=== PATIENT | male | born 1970 | race African-American/Black ===

== ENCOUNTER 2019-04-27 05:25 | Emergency (ER) | payer MEDICAID ==
[~2019-04-27] VITALS: Ht 185.4 cm; Wt 104.5 kg
[~2019-04-27 05:25] MED LIST: ASPI-1265 PO; ATOR20TA66 PO; METO25TA6 PO; NITR0.4T51 SL; TICA90TA PO; WARF5TAB PO
[2019-04-27 05:37] VITALS: BP 139/82
[2019-04-27] MEDS ORDERED: aspirin 325mg tablet PO ONE (06:00)
[2019-04-27 06:36] LABS: BASOPHILS # (AUTO) 0.1 X10'3 (0-0.2); BASOPHILS % (AUTO) 0.9 % (0-1); EOSINOPHILS # (AUTO) 0.1 X10'3 (0-0.9); EOSINOPHILS % (AUTO) 1.2 % (0-6); HEMATOCRIT 44.9 % (42.0-52.0); HEMOGLOBIN 15.3 g/dl (14.0-17.9); LYMPHOCYTES # (AUTO) 3.5 X10'3 (1.1-4.8); LYMPHOCYTES % (AUTO) 47.6 % (21-51); MEAN CORPUSCULAR HGB CONC 34.2 g/dL (33.0-36.5); MEAN CORPUSCULAR VOLUME 87.8 FL (78-98); MEAN PLATELET VOLUME 7.7 FL (7.4-10.4); MONOCYTES # (AUTO) 0.5 X10'3 (0-0.9); NEUTROPHILS # (AUTO) 3.2 X10'3 (1.8-7.7); NEUTROPHILS % (AUTO) 43.3 % (42-75); PLATELET COUNT 183 X10'3 (140-440); RED BLOOD COUNT 5.11 X10'6 (4.70-6.10); RED CELL DISTRIBUTION WIDTH 13.9 % (11.5-14.5); WHITE BLOOD COUNT 7.3 X10'3 (4.5-11.0)
--- NOTE | 2019-04-27 06:45 | NUR ---
pt laying on katie report no dizzyness iv attemps done but unable to start one was able to get blood and he is able to drink water so far [facility] drank about 700 ml will encourage him to drink more
[2019-04-27 06:52] LABS: ALANINE AMINOTRANSFERASE 33 U/L (12-78); ALBUMIN 4.2 G/DL (3.4-5.0); ALBUMIN/GLOBULIN RATIO 1.2 (1.1-1.5); ALKALINE PHOSPHATASE 68 IU/L (46-116); ANION GAP 8 (8-16); ASPARTATE AMINO TRANSFERASE 23 U/L (10-37); BILIRUBIN,TOTAL 0.3 MG/DL (0.1-1.0); BLOOD UREA NITROGEN 13 MG/DL (7-18); BUN/CREATININE RATIO 16.5 (5.4-32.0); CHLORIDE 105 MMOL/L (99-107); CREATININE 0.79 MG/DL (0.60-1.10); GLUCOSE 73 MG/DL (70-104); SODIUM 142 MMOL/L (135-145); TOTAL CARBON DIOXIDE 29.4 MMOL/L (24-32); TOTAL PROTEIN 7.6 G/DL (6.4-8.2); eGFR > 90 ML/MIN
== END 2019-04-27 07:21 | disposition home or self-care (01) ==
LOC: ER 05:25
DX: R42 Dizziness and giddiness (principal); I25.10 Atherosclerotic heart disease of native coronary artery without angina pectoris; E78.00 Pure hypercholesterolemia, unspecified; I10 Essential (primary) hypertension; I25.2 Old myocardial infarction; Z86.711 Personal history of pulmonary embolism; Z98.61 Coronary angioplasty status; Z98.890 Other specified postprocedural states; Z79.82 Long term (current) use of aspirin; Z79.01 Long term (current) use of anticoagulants; Z79.899 Other long term (current) drug therapy
CPT/HCPCS: 36415; 71045; 80053; 84484; 85025; 93005; 99284

== ENCOUNTER 2019-12-22 14:11 | Emergency (ER) | payer MEDICAID ==
[~2019-12-22] VITALS: Ht 185.4 cm; Wt 108.0 kg
[~2019-12-22 14:11] MED LIST changes: -WARF5TAB PO; +WARF5TAB2 PO
[2019-12-22] MEDS ORDERED: ketorolac tromethamine 15mg/ml inj. IM ONE (15:20)
--- NOTE | 2019-12-22 15:25 | NUR ---
Lab at bedside for blood draw.
[2019-12-22] MEDS ORDERED: ibuprofen 200mg tablet PO ONE (16:00)
[2019-12-22] MEDS ORDERED: AMOX500C2 PO (16:15)
[2019-12-22 16:29] VITALS: BP 151/77
== END 2019-12-22 16:29 | disposition home or self-care (01) ==
LOC: ER 14:12
DX: R51 Headache (principal); K08.89 Other specified disorders of teeth and supporting structures; Z79.2 Long term (current) use of antibiotics; Z79.82 Long term (current) use of aspirin; Z79.01 Long term (current) use of anticoagulants; Z79.899 Other long term (current) drug therapy
CPT/HCPCS: 36415; 85610; 96372; 99283; J1885

== ENCOUNTER 2020-08-08 19:00 | Emergency (ER) | payer MEDICAID ==
[~2020-08-08] VITALS: Ht 185.4 cm; Wt 104.5 kg
[~2020-08-08 19:00] MED LIST changes: +LOP25T PO; -METO25TA6 PO
[2020-08-08 19:01] VITALS: BP 163/91
[2020-08-08] MEDS ORDERED: morphine 4 MG/ML inj SYRINge IV ONE (19:10)
[2020-08-08] MEDS ORDERED: ondansetron/PF 4mg/2ml inj IV ONE (19:10)
[2020-08-08 19:32] LABS: EOSINOPHILS # (AUTO) 0.1 X10'3 (0-0.9); HEMOGLOBIN 15.3 g/dl (14.0-17.9); RED CELL DISTRIBUTION WIDTH 14.3 % (11.5-14.5); WHITE BLOOD COUNT 5.6 X10'3 (4.5-11.0)
[2020-08-08 19:34] LABS: BASOPHILS # (AUTO) 0.1 X10'3 (0-0.2); BASOPHILS % (AUTO) 1.1 % (0-1); EOSINOPHILS % (AUTO) 1.5 % (0-6); HEMATOCRIT 45.1 % (42.0-52.0); LYMPHOCYTES # (AUTO) 2.7 X10'3 (1.1-4.8); LYMPHOCYTES % (AUTO) 47.5 % (21-51); MEAN CORPUSCULAR VOLUME 88.2 FL (78-98); MEAN PLATELET VOLUME 8.1 FL (7.4-10.4); MONOCYTES # (AUTO) 0.3 X10'3 (0-0.9); NEUTROPHILS # (AUTO) 2.4 X10'3 (1.8-7.7); NEUTROPHILS % (AUTO) 43.9 % (42-75); PLATELET COUNT 193 X10'3 (140-440)
[2020-08-08 19:40] LABS: ALANINE AMINOTRANSFERASE 36 U/L (12-78); ALBUMIN/GLOBULIN RATIO 1.2 (1.1-1.5); ALKALINE PHOSPHATASE 96 IU/L (46-116); ANION GAP 10 (8-16); ASPARTATE AMINO TRANSFERASE 25 U/L (10-37); BILIRUBIN,TOTAL 0.3 MG/DL (0.1-1.0); BLOOD UREA NITROGEN 10 MG/DL (7-18); BUN/CREATININE RATIO 11.6 (5.4-32.0); CALCIUM 8.6 MG/DL (8.5-10.1); CHLORIDE 105 MMOL/L (99-107); CREATININE 0.86 MG/DL (0.60-1.10); GLUCOSE 158 MG/DL (70-104); LIPASE 65 U/L (73-393); POTASSIUM 3.7 MMOL/L (3.5-5.1); SODIUM 141 MMOL/L (135-145); TOTAL CARBON DIOXIDE 25.9 MMOL/L (24-32); TOTAL PROTEIN 7.4 G/DL (6.4-8.2); eGFR > 90 ML/MIN
[2020-08-08] MEDS ORDERED: ketorolac tromethamine 15mg/ml inj. IV ONE (20:10)
[2020-08-08] MEDS ORDERED: orphenadrine citrate 60mg/2ml inj. IM ONE (20:45)
[2020-08-08] MEDS ORDERED: ORPH100T2 PO (20:46)
[2020-08-08 20:51] LABS: CLARITY,URINE CLEAR (Clear); COLOR,URINE YELLOW (Yellow); GLUCOSE, URINE NEGATIVE (Neg); KETONES,URINE NEGATIVE (Neg); LEUKOCYTE ESTERASE ,URINE NEGATIVE (Neg); NITRITES, URINE NEGATIVE (Neg); OCCULT BLOOD,URINE SMALL (Neg); PROTEIN,URINE NEGATIVE (Neg); UROBILINOGEN,URINE 0.2 E.U/dL (0.2-1.0)
[2020-08-08 20:57] LABS: UA COLLECTION TYPE CLN CATCH MIDSTREAM
[2020-08-08 21:04] LABS: BACTERIA,URINE FEW /HPF (Neg); MUCUS STRANDS NONE SEEN /LPF (Neg); SQUAMOUS EPITHELIAL CELL,UR FEW /LPF (FEW)
[2020-08-09] MEDS ORDERED: POLY17PO10 PO (23:32)
[2020-08-09] MEDS ORDERED: DICY10CA88 PO (23:32)
== END 2020-08-08 21:26 | disposition home or self-care (01) ==
LOC: ER 19:00
DX: M54.5 Low back pain (principal); R10.9 Unspecified abdominal pain; I25.10 Atherosclerotic heart disease of native coronary artery without angina pectoris; E78.00 Pure hypercholesterolemia, unspecified; I10 Essential (primary) hypertension; I52 Other heart disorders in diseases classified elsewhere; F12.90 Cannabis use, unspecified, uncomplicated; I25.2 Old myocardial infarction; F17.210 Nicotine dependence, cigarettes, uncomplicated; Z98.61 Coronary angioplasty status; Z72.89 Other problems related to lifestyle; Z98.890 Other specified postprocedural states; Z86.711 Personal history of pulmonary embolism; Z79.82 Long term (current) use of aspirin; Z79.01 Long term (current) use of anticoagulants; Z79.899 Other long term (current) drug therapy
CPT/HCPCS: 74176; 80053; 81001; 83690; 85025; 87088; 96374; 96375; 99284; J1885; J2270; J2405

== ENCOUNTER 2020-08-09 21:31 | Emergency (ER) | payer MEDICAID ==
[~2020-08-09] VITALS: Ht 182.9 cm; Wt 104.5 kg
[~2020-08-09 21:31] MED LIST changes: +ORPH100T2 PO
[2020-08-09 21:50] VITALS: BP 142/96
[2020-08-09 23:00] LABS: BASOPHILS % (AUTO) 0.6 % (0-1); EOSINOPHILS # (AUTO) 0.1 X10'3 (0-0.9); EOSINOPHILS % (AUTO) 1.3 % (0-6); HEMOGLOBIN 16.3 g/dl (14.0-17.9); LYMPHOCYTES # (AUTO) 2.8 X10'3 (1.1-4.8); LYMPHOCYTES % (AUTO) 41.4 % (21-51); MEAN CORPUSCULAR VOLUME 88.1 FL (78-98); MEAN PLATELET VOLUME 7.6 FL (7.4-10.4); MONOCYTES # (AUTO) 0.6 X10'3 (0-0.9); MONOCYTES % (AUTO) 8.7 % (2-12); NEUTROPHILS # (AUTO) 3.2 X10'3 (1.8-7.7); PLATELET COUNT 213 X10'3 (140-440); RED BLOOD COUNT 5.45 X10'6 (4.70-6.10); RED CELL DISTRIBUTION WIDTH 14.6 % (11.5-14.5); WHITE BLOOD COUNT 6.7 X10'3 (4.5-11.0)
[2020-08-09 23:24] LABS: ALANINE AMINOTRANSFERASE 43 U/L (12-78); ALBUMIN 4.2 G/DL (3.4-5.0); ALBUMIN/GLOBULIN RATIO 1.1 (1.1-1.5); ALKALINE PHOSPHATASE 87 IU/L (46-116); ANION GAP 10 (8-16); ASPARTATE AMINO TRANSFERASE 27 U/L (10-37); BILIRUBIN,TOTAL 0.4 MG/DL (0.1-1.0); BLOOD UREA NITROGEN 9 MG/DL (7-18); BUN/CREATININE RATIO 12.3 (5.4-32.0); CALCIUM 9.2 MG/DL (8.5-10.1); CHLORIDE 103 MMOL/L (99-107); CREATININE 0.73 MG/DL (0.60-1.10); GLUCOSE 104 MG/DL (70-104); LIPASE 389 U/L (73-393); POTASSIUM 3.7 MMOL/L (3.5-5.1); SODIUM 141 MMOL/L (135-145); TOTAL CARBON DIOXIDE 27.8 MMOL/L (24-32); eGFR > 90 ML/MIN
[2020-08-09] MEDS ORDERED: ketorolac trometh inj. 60 MG/2 ML VIAL IM ONE (23:30)
[2020-08-09] MEDS ORDERED: DICY10CA88 PO (23:32)
[2020-08-09] MEDS ORDERED: POLY17PO10 PO (23:32)
== END 2020-08-10 00:29 | disposition home or self-care (01) ==
LOC: ER 21:33
DX: R10.32 Left lower quadrant pain (principal); M54.5 Low back pain; I25.10 Atherosclerotic heart disease of native coronary artery without angina pectoris; E78.00 Pure hypercholesterolemia, unspecified; I10 Essential (primary) hypertension; I25.2 Old myocardial infarction; F12.90 Cannabis use, unspecified, uncomplicated; Z86.711 Personal history of pulmonary embolism; Z98.890 Other specified postprocedural states; Z72.89 Other problems related to lifestyle; Z79.82 Long term (current) use of aspirin; Z79.899 Other long term (current) drug therapy
CPT/HCPCS: 36415; 80053; 83690; 85025; 96372; 99283; J1885

== ENCOUNTER 2023-06-03 00:54 | Emergency (ER) | payer MEDICAID, OTHER ==
[~2023-06-03] VITALS: Ht 185.4 cm; Wt 109.1 kg
[~2023-06-03 00:54] MED LIST changes: +AMOX-117 PO; +CYCL-1 PO; +DICY10CA88 PO; +IBUP-1986 PO; -ORPH100T2 PO; +ORPH100T4 PO
[2023-06-03] MEDS: HYDROmorphone 1 mg/ml syringe IV ONE (01:56)
[2023-06-03] MEDS: acetaminophen 1,000mg/100ml IV 100 ML IV STA (01:56)
[2023-06-03 02:03] LABS: BASOPHILS % (AUTO) 0.7 % (0-1); EOSINOPHILS # (AUTO) 0.1 X10'3 (0-0.9); EOSINOPHILS % (AUTO) 1.1 % (0-6); HEMATOCRIT 43.2 % (42.0-52.0); HEMOGLOBIN 14.7 g/dl (14.0-17.9); LYMPHOCYTES # (AUTO) 1.9 X10'3 (1.1-4.8); LYMPHOCYTES % (AUTO) 32.2 % (21-51); MEAN CORPUSCULAR HEMOGLOBIN 30.1 PG (27.0-31.0); MEAN CORPUSCULAR VOLUME 88.7 FL (78-98); MEAN PLATELET VOLUME 7.3 FL (7.4-10.4); MONOCYTES # (AUTO) 0.4 X10'3 (0-0.9); MONOCYTES % (AUTO) 6.7 % (2-12); NEUTROPHILS # (AUTO) 3.6 X10'3 (1.8-7.7); NEUTROPHILS % (AUTO) 59.3 % (42-75); PLATELET COUNT 212 X10'3 (140-440); RED BLOOD COUNT 4.87 X10'6 (4.70-6.10); RED CELL DISTRIBUTION WIDTH 14.2 % (11.5-14.5)
[2023-06-03 02:11] LABS: ALBUMIN 3.6 G/DL (3.4-5.0); ANION GAP 10 (8-16); BLOOD UREA NITROGEN 11 MG/DL (7-18); BUN/CREATININE RATIO 13.8 (10.0-20.0); CALCIUM 8.9 MG/DL (8.5-10.1); CHLORIDE 107 MMOL/L (99-107); GLUCOSE 113 MG/DL (70-104); POTASSIUM 4.1 MMOL/L (3.5-5.1); SODIUM 144 MMOL/L (135-145); TOTAL CARBON DIOXIDE 26.8 MMOL/L (24-32); eCRCL 119 ML/MIN; eGFR > 90 ML/MIN
[2023-06-03 04:00] VITALS: TEMP 98.6
[2023-06-03 04:39] LABS: BILIRUBIN,URINE NEGATIVE (Neg); CLARITY,URINE CLEAR (Clear); COLOR,URINE YELLOW (Yellow); GLUCOSE, URINE NEGATIVE (Neg); KETONES,URINE NEGATIVE (Neg); LEUKOCYTE ESTERASE ,URINE NEGATIVE (Neg); NITRITES, URINE NEGATIVE (Neg); OCCULT BLOOD,URINE TRACE-INTACT (Neg); PH,URINE 7.5 (4.8-8.0); PROTEIN,URINE NEGATIVE (Neg); UROBILINOGEN,URINE 0.2 E.U/dL (0.2-1.0)
[2023-06-03 04:40] LABS: UA COLLECTION TYPE CLN CATCH MIDSTREAM
[2023-06-03 04:58] LABS: RBC,URINE 0-2 /HPF (0-2)
[2023-06-03 04:59] LABS: BACTERIA,URINE FEW /HPF (Neg); SQUAMOUS EPITHELIAL CELL,UR MANY /LPF (FEW)
[2023-06-03 05:00] LABS: MUCUS STRANDS NONE SEEN /LPF (Neg)
[2023-06-03 05:03] LABS: PROTHROMBIN TIME 20.2 SECONDS (9.0-12.0)
[2023-06-03] MEDS ORDERED: iohexol 300mg/ml 100ml inj. ONE (05:09)
[2023-06-03] MEDS ORDERED: CEPH-585 PO (05:44)
[2023-06-03 06:33] VITALS: BP 201/83; PULSE 63; RESP 17; O2SAT 100
[2023-06-04] MEDS ORDERED: HYDR-3965 PO (18:52)
== END 2023-06-03 06:37 | disposition home or self-care (01) ==
LOC: ER 00:54
DX: N39.0 Urinary tract infection, site not specified (principal); M25.552 Pain in left hip; R10.31 Right lower quadrant pain; M79.604 Pain in right leg
CPT/HCPCS: 36415; 73502; 73552; 74177; 80048; 81001; 85025; 85610; 96374; 96375; 99285; J0131; J1170; J3490; Q9967

== ENCOUNTER 2023-06-04 08:28 | Emergency (ER) | payer OTHER ==
[~2023-06-04] VITALS: Ht 185.4 cm; Wt 109.0 kg
[~2023-06-04 08:28] MED LIST changes: +CEPH-585 PO
[2023-06-04] MEDS: acetaminophen 1,000mg/100ml IV 100 ML IV ONE (10:12)
[2023-06-04 11:50] LABS: BILIRUBIN,URINE NEGATIVE (Neg); CLARITY,URINE CLEAR (Clear); COLOR,URINE YELLOW (Yellow); GLUCOSE, URINE NEGATIVE (Neg); KETONES,URINE NEGATIVE (Neg); LEUKOCYTE ESTERASE ,URINE NEGATIVE (Neg); NITRITES, URINE NEGATIVE (Neg); OCCULT BLOOD,URINE SMALL (Neg); PH,URINE 7.5 (4.8-8.0); PROTEIN,URINE NEGATIVE (Neg); UROBILINOGEN,URINE 0.2 E.U/dL (0.2-1.0)
[2023-06-04 11:54] LABS: UA COLLECTION TYPE VOIDED
[2023-06-04 11:59] LABS: BACTERIA,URINE FEW /HPF (Neg); MUCUS STRANDS NONE SEEN /LPF (Neg); SQUAMOUS EPITHELIAL CELL,UR FEW /LPF (FEW); WBC,URINE 0-4 /HPF (0-4)
[2023-06-04] MEDS: HYDROcodone/acetaminophen 5mg/325mg tablet PO ONE (12:34)
[2023-06-04] MEDS ORDERED: iohexol 350MG/ML 100ml bottle IV ONE ×2 (12:43→13:55)
[2023-06-04] MEDS ORDERED: iohexol 350 MG/ML 50ML vial IV ONE ×2 (12:44→13:55)
[2023-06-04 13:22] LABS: BASOPHILS # (AUTO) 0.1 X10'3 (0-0.2); BASOPHILS % (AUTO) 0.8 % (0-1); EOSINOPHILS # (AUTO) 0.1 X10'3 (0-0.9)
[2023-06-04 13:24] LABS: EOSINOPHILS % (AUTO) 1.2 % (0-6); HEMATOCRIT 46.6 % (42.0-52.0); LYMPHOCYTES # (AUTO) 3.7 X10'3 (1.1-4.8); LYMPHOCYTES % (AUTO) 41.8 % (21-51); MEAN CORPUSCULAR HEMOGLOBIN 30.5 PG (27.0-31.0); MEAN CORPUSCULAR HGB CONC 34.4 g/dL (33.0-36.5); MEAN CORPUSCULAR VOLUME 88.6 FL (78-98); MEAN PLATELET VOLUME 7.7 FL (7.4-10.4); MONOCYTES # (AUTO) 0.6 X10'3 (0-0.9); MONOCYTES % (AUTO) 6.5 % (2-12); NEUTROPHILS # (AUTO) 4.4 X10'3 (1.8-7.7); NEUTROPHILS % (AUTO) 49.7 % (42-75); PLATELET COUNT 239 X10'3 (140-440); RED BLOOD COUNT 5.26 X10'6 (4.70-6.10); RED CELL DISTRIBUTION WIDTH 14.4 % (11.5-14.5); WHITE BLOOD COUNT 8.8 X10'3 (4.5-11.0)
[2023-06-04 13:27] LABS: ALANINE AMINOTRANSFERASE 19 U/L (12-78); ALBUMIN 3.9 G/DL (3.4-5.0); ALKALINE PHOSPHATASE 91 IU/L (46-116); ANION GAP 9 (8-16); ASPARTATE AMINO TRANSFERASE 20 U/L (10-37); BILIRUBIN,TOTAL 0.5 MG/DL (0.1-1.0); BLOOD UREA NITROGEN 8 MG/DL (7-18); BUN/CREATININE RATIO 9.6 (10.0-20.0); C-REACTIVE PROTEIN 1.03 MG/DL (0.0-0.5); CALCIUM 8.9 MG/DL (8.5-10.1); CHLORIDE 105 MMOL/L (99-107); CREATININE 0.83 MG/DL (0.60-1.10); GLUCOSE 104 MG/DL (70-104); SODIUM 142 MMOL/L (135-145); TOTAL CARBON DIOXIDE 27.6 MMOL/L (24-32); TOTAL PROTEIN 7.9 G/DL (6.4-8.2); eCRCL 115 ML/MIN; eGFR > 90 ML/MIN
[2023-06-04] MEDS: cyclobenzaprine 10mg tablet PO ONE (13:28)
[2023-06-04] MEDS: morphine 2 MG/ML inj. syringe IV ONE (13:47)
[2023-06-04] MEDS ORDERED: acetaminophen 1,000mg/100ml IV 100 ML IV SCH (14:00)
[2023-06-04] MEDS: oxyCODONE SR 10mg (sust. release) tab PO ONE (15:30)
[2023-06-04] MEDS ORDERED: HYDR-3965 PO (18:52)
[2023-06-04 19:41] VITALS: BP 149/88; PULSE 77; RESP 16; TEMP 98.3; O2SAT 99
== END 2023-06-04 19:44 | disposition home or self-care (01) ==
LOC: ER 08:28
DX: M25.562 Pain in left knee (principal); E78.00 Pure hypercholesterolemia, unspecified; I50.9 Heart failure, unspecified; F17.200 Nicotine dependence, unspecified, uncomplicated; F12.10 Cannabis abuse, uncomplicated; Z79.899 Other long term (current) drug therapy
CPT/HCPCS: 36415; 72128; 72131; 73706; 80053; 81001; 83605; 84145; 85025; 85651; 86140; 93922; 93926; 93971; 96374; 96375; 99285; J0131; J2270; J3490; Q9967

== ENCOUNTER 2023-09-09 21:24 | Inpatient (IN) | payer SELFPAY ==
[~2023-09-09] VITALS: Ht 185.4 cm; Wt 107.0 kg
[2023-09-09 21:48] LABS: EOSINOPHILS # (AUTO) 0.1 X10'3 (0-0.9); HEMOGLOBIN 15.7 g/dl (14.0-17.9); MONOCYTES # (AUTO) 0.6 X10'3 (0-0.9); NEUTROPHILS # (AUTO) 1.8 X10'3 (1.8-7.7)
[2023-09-09 21:50] LABS: BASOPHILS # (AUTO) 0.1 X10'3 (0-0.2); BASOPHILS % (AUTO) 0.9 % (0-1); EOSINOPHILS % (AUTO) 1.7 % (0-6); HEMATOCRIT 46.2 % (42.0-52.0); LYMPHOCYTES # (AUTO) 3.7 X10'3 (1.1-4.8); LYMPHOCYTES % (AUTO) 58.7 % (21-51); MEAN CORPUSCULAR VOLUME 88.1 FL (78-98); MEAN PLATELET VOLUME 7.2 FL (7.4-10.4); MONOCYTES % (AUTO) 9.5 % (2-12); NEUTROPHILS % (AUTO) 29.2 % (42-75); PLATELET COUNT 197 X10'3 (140-440); RED BLOOD COUNT 5.25 X10'6 (4.70-6.10); RED CELL DISTRIBUTION WIDTH 14.1 % (11.5-14.5); WHITE BLOOD COUNT 6.2 X10'3 (4.5-11.0)
[2023-09-09 22:13] LABS: PRO BRAIN NATRIURETIC PEPTIDE 70 PG/ML (0-125)
[2023-09-09 22:46] LABS: PLATELET ESTIMATE NORMAL; TOTAL CELLS COUNTED 100
[2023-09-09 22:49] LABS: ALANINE AMINOTRANSFERASE 26 U/L (12-78); ALBUMIN 3.9 G/DL (3.4-5.0); ALKALINE PHOSPHATASE 88 IU/L (46-116); ANION GAP 12 (8-16); ASPARTATE AMINO TRANSFERASE 14 U/L (10-37); BILIRUBIN,TOTAL 0.4 MG/DL (0.1-1.0); BLOOD UREA NITROGEN 11 MG/DL (7-18); BUN/CREATININE RATIO 12.5 (10.0-20.0); CALCIUM 9.1 MG/DL (8.5-10.1); CHLORIDE 103 MMOL/L (99-107); CREATININE 0.88 MG/DL (0.60-1.10); GLUCOSE 107 MG/DL (70-104); POIKILOCYTOSIS FEW; POTASSIUM 3.8 MMOL/L (3.5-5.1); SODIUM 139 MMOL/L (135-145); TOTAL CARBON DIOXIDE 24.4 MMOL/L (24-32); TOTAL PROTEIN 7.8 G/DL (6.4-8.2); eCRCL 108 ML/MIN; eGFR > 90 ML/MIN
[2023-09-09 22:50] LABS: HYPERSEGMENTED NEUTROPHILS FEW; SMUDGE CELLS 1+; TOXIC VACUOLATION 1+
[2023-09-09] MEDS: acetaminophen 325mg tablet PO ONE (23:34)
[2023-09-10] VITALS (11 sets, daily range): BP systolic 139–154; BP diastolic 78–88; PULSE 53–87; RESP 16–18; TEMP 98.2–98.8; O2SAT 96–100
[2023-09-10] MEDS: metoprolol tartrate 50mg tablet PO ONE (00:54)
[2023-09-10] MEDS: aspirin 325mg tablet PO ONE (00:54)
[2023-09-10] MEDS: heparin 10,000 units/1 ML INJ IV ONE (01:02)
[2023-09-10] MEDS: heparin 25,000 UNIT/250ml bag 250 ML IV PRN (01:05)
[2023-09-10] MEDS: MESSAGE TO NURSING IV ONE ×2 (01:07→09:55)
[2023-09-10 01:15] LABS: APTT 24 SECONDS (22-32); INR 1.2 INR; PROTHROMBIN TIME 12.2 SECONDS (9.0-12.0)
[2023-09-10 02:03] LABS: BASOPHILS # (AUTO) 0.1 X10'3 (0-0.2); BASOPHILS % (AUTO) 1.2 % (0-1); EOSINOPHILS # (AUTO) 0.1 X10'3 (0-0.9); EOSINOPHILS % (AUTO) 1.4 % (0-6); HEMATOCRIT 44.8 % (42.0-52.0); HEMOGLOBIN 15.4 g/dl (14.0-17.9); LYMPHOCYTES # (AUTO) 2.5 X10'3 (1.1-4.8); LYMPHOCYTES % (AUTO) 40.1 % (21-51); MEAN CORPUSCULAR HEMOGLOBIN 30.2 PG (27.0-31.0); MEAN CORPUSCULAR HGB CONC 34.4 g/dL (33.0-36.5); MEAN CORPUSCULAR VOLUME 87.8 FL (78-98); MEAN PLATELET VOLUME 7.5 FL (7.4-10.4); MONOCYTES # (AUTO) 0.4 X10'3 (0-0.9); MONOCYTES % (AUTO) 5.9 % (2-12); NEUTROPHILS # (AUTO) 3.2 X10'3 (1.8-7.7); NEUTROPHILS % (AUTO) 51.4 % (42-75); PLATELET COUNT 183 X10'3 (140-440); RED CELL DISTRIBUTION WIDTH 14.1 % (11.5-14.5); WHITE BLOOD COUNT 6.3 X10'3 (4.5-11.0)
[2023-09-10] MEDS ORDERED: potassium Cl 20 mEq SR tablet PO PRN ×2 (02:10)
[2023-09-10] MEDS ORDERED: magnesium 4gm in 100ml NS 100 ML IV PRN (02:10)
[2023-09-10] MEDS ORDERED: HYDROcodone/acetaminophen 10/325mg tab PO PRN (02:10)
[2023-09-10] MEDS ORDERED: ondansetron/PF 4mg/2ml inj IV PRN (02:10)
[2023-09-10] MEDS ORDERED: morphine 2 MG/ML inj. syringe IV PRN ×2 (02:10)
[2023-09-10] MEDS ORDERED: magnesium Cl slow-release 64mg tablet PO PRN (02:10)
[2023-09-10] MEDS ORDERED: HYDROcodone/acetaminophen 5mg/325mg tablet PO PRN (02:10)
[2023-09-10] MEDS ORDERED: magnesium 2GM in 50ml NS 50 ML IV PRN (02:10)
[2023-09-10] MEDS ORDERED: acetaminophen 325mg tablet PO PRN ×2 (02:10)
[2023-09-10] MEDS ORDERED: potassium Cl 40MEQ/1/2NS 520ml 520 ML IV PRN (02:10)
[2023-09-10] MEDS ORDERED: nitroGLYCERIN 0.4mg SUBLingual tab SL PRN (02:15)
[2023-09-10] MEDS ORDERED: heparin 25,000 UNIT/250ml bag 250 ML IV PRN (02:15)
[2023-09-10] MEDS ORDERED: aminophylline 250mg/10ml inj. IV PRN (02:15)
[2023-09-10] MEDS ORDERED: heparin 10,000 units/1 ML INJ IV PRN (02:15)
[2023-09-10] MEDS ORDERED: metoprolol tartrate 1mg/ml inj IV PRN (02:15)
[2023-09-10] MEDS: normal saline 1000ml 1,000 ML IV SCH (04:48)
[2023-09-10] MEDS: metoprolol tartrate 25mg tablet PO SCH (06:00)
[2023-09-10] MEDS: aspirin 325mg tablet PO SCH (08:36)
[2023-09-10 09:14] LABS: APTT 30 SECONDS (22-32)
[2023-09-10] MEDS: regadenoson 0.4mg/5ml syringe IV PRN (09:15)
[2023-09-10] MEDS ORDERED: WARF1TAB83 PO (10:26)
[2023-09-10] MEDS ORDERED: NITR0.4T51 SL (10:30)
[2023-09-10] MEDS: heparin 10,000 units/1 ML INJ IV PRN (10:39)
[2023-09-10] MEDS ORDERED: METO25TA6 PO (10:50)
[2023-09-10] MEDS ORDERED: ATOR20TA PO (11:04)
[2023-09-10] MEDS ORDERED: LISI5TAB22 PO (13:03)
== END 2023-09-10 14:30 | disposition home or self-care (01) | DRG 282 ==
LOC: ER 21:24 → ED HOLD 09-10 02:11 → EDBEDREQ 09-10 03:28 → PCU 3S 09-10 04:17
PROVIDERS: ADMIT Internal Medicine; ATTEND Internal Medicine
PROC: 4A02XM4 Measurement of Cardiac Total Activity, External Approach (ICD-10-PCS; principal; 2023-09-10)
PROC: 3E033HZ Introduction of Radioactive Substance into Peripheral Vein, Percutaneous Approach (ICD-10-PCS; 2023-09-10)
DX: I21.4 Non-ST elevation (NSTEMI) myocardial infarction (principal); E78.00 Pure hypercholesterolemia, unspecified; I10 Essential (primary) hypertension; I25.10 Atherosclerotic heart disease of native coronary artery without angina pectoris; G89.29 Other chronic pain; F17.210 Nicotine dependence, cigarettes, uncomplicated; F12.90 Cannabis use, unspecified, uncomplicated; I25.2 Old myocardial infarction; Z79.899 Other long term (current) drug therapy; Z86.711 Personal history of pulmonary embolism; Z95.5 Presence of coronary angioplasty implant and graft
CPT/HCPCS: 36415; 71045; 78452; 80053; 83880; 84484; 85007; 85025; 85610; 85730; 87081; 93005; 93017; 93306; 96365; 96376; 99285; A6449; A9500; G0378; J1644; J2785; J7030

== ENCOUNTER 2023-10-12 20:45 | Emergency (ER) | payer BC ==
[~2023-10-12] VITALS: Ht 185.4 cm; Wt 109.1 kg
[~2023-10-12 20:45] MED LIST changes: -AMOX-117 PO; +ATOR20TA PO; -ATOR20TA66 PO; -CEPH-585 PO; -CYCL-1 PO; -DICY10CA88 PO; -IBUP-1986 PO; +LISI5TAB22 PO; -LOP25T PO; +METO25TA6 PO; -ORPH100T4 PO; -TICA90TA PO; +WARF1TAB83 PO; -WARF5TAB2 PO
[2023-10-12 20:53] VITALS: TEMP 98.6
[2023-10-12 21:55] LABS: BILIRUBIN,URINE NEGATIVE (Neg); CLARITY,URINE CLEAR (Clear); COLOR,URINE YELLOW (Yellow); GLUCOSE, URINE NEGATIVE (Neg); KETONES,URINE NEGATIVE (Neg); LEUKOCYTE ESTERASE ,URINE NEGATIVE (Neg); NITRITES, URINE NEGATIVE (Neg); OCCULT BLOOD,URINE SMALL (Neg); PROTEIN,URINE NEGATIVE (Neg); UROBILINOGEN,URINE 0.2 E.U/dL (0.2-1.0)
[2023-10-12 22:00] LABS: UA COLLECTION TYPE CLN CATCH MIDSTREAM
[2023-10-12 22:01] LABS: MUCUS STRANDS MANY /LPF (Neg); SQUAMOUS EPITHELIAL CELL,UR MODERATE /LPF (FEW); WBC,URINE 0-4 /HPF (0-4)
[2023-10-12 22:02] LABS: BACTERIA,URINE NONE SEEN /HPF (Neg)
[2023-10-12] MEDS: ketorolac tromethamine 15mg/ml inj. IM ONE (22:08)
[2023-10-12] MEDS ORDERED: PRED20TA PO (22:58)
[2023-10-12 23:07] VITALS: BP 144/81; PULSE 89; RESP 14; O2SAT 98
[2023-10-13] MEDS ORDERED: HYDR-3972 PO (19:57)
[2023-10-13] MEDS ORDERED: METH-798 PO (19:57)
== END 2023-10-12 23:08 | disposition home or self-care (01) ==
LOC: ER 20:46
DX: M54.17 Radiculopathy, lumbosacral region (principal); I25.10 Atherosclerotic heart disease of native coronary artery without angina pectoris; E78.00 Pure hypercholesterolemia, unspecified; I10 Essential (primary) hypertension; I25.2 Old myocardial infarction; F12.90 Cannabis use, unspecified, uncomplicated; G89.29 Other chronic pain; M54.9 Dorsalgia, unspecified; Z98.890 Other specified postprocedural states; Z79.82 Long term (current) use of aspirin; Z79.899 Other long term (current) drug therapy; Z86.711 Personal history of pulmonary embolism
CPT/HCPCS: 81001; 96372; 99283; J1885

== ENCOUNTER 2023-10-13 16:16 | Emergency (ER) | payer BC ==
[~2023-10-13] VITALS: Ht 185.4 cm; Wt 109.1 kg
[~2023-10-13 16:16] MED LIST changes: +PRED20TA PO
[2023-10-13] MEDS: LORazepam 1 MG tablet PO ONE (16:55)
[2023-10-13] MEDS ORDERED: HYDR-3972 PO (19:57)
[2023-10-13] MEDS ORDERED: METH-798 PO (19:57)
[2023-10-13 20:05] VITALS: BP 145/84; PULSE 66; RESP 17; TEMP 97.9; O2SAT 97
== END 2023-10-13 20:09 | disposition home or self-care (01) ==
LOC: ER 16:16
DX: M54.17 Radiculopathy, lumbosacral region (principal); I25.10 Atherosclerotic heart disease of native coronary artery without angina pectoris; E78.00 Pure hypercholesterolemia, unspecified; I10 Essential (primary) hypertension; I25.2 Old myocardial infarction; G89.29 Other chronic pain; M54.9 Dorsalgia, unspecified; F12.90 Cannabis use, unspecified, uncomplicated; Z86.711 Personal history of pulmonary embolism; Z98.890 Other specified postprocedural states; Z79.82 Long term (current) use of aspirin; Z79.899 Other long term (current) drug therapy; Z79.52 Long term (current) use of systemic steroids
CPT/HCPCS: 72148; 99284

== ENCOUNTER 2023-12-28 15:00 | Inpatient (IN) | payer BC ==
[~2023-12-28] VITALS: Ht 185.4 cm; Wt 120.0 kg
[~2023-12-28 15:00] MED LIST changes: +METH-798 PO; -PRED20TA PO
[2023-12-28 15:43] LABS: BASOPHILS % (AUTO) 0.5 % (0-1); EOSINOPHILS # (AUTO) 0.1 X10'3 (0-0.9); EOSINOPHILS % (AUTO) 2.4 % (0-6); HEMATOCRIT 42.8 % (42.0-52.0); LYMPHOCYTES # (AUTO) 1.9 X10'3 (1.1-4.8); LYMPHOCYTES % (AUTO) 41.3 % (21-51); MEAN CORPUSCULAR HEMOGLOBIN 28.9 PG (27.0-31.0); MEAN CORPUSCULAR HGB CONC 32.8 g/dL (33.0-36.5); MEAN CORPUSCULAR VOLUME 88.2 FL (78-98); MEAN PLATELET VOLUME 7.4 FL (7.4-10.4); MONOCYTES # (AUTO) 0.4 X10'3 (0-0.9); MONOCYTES % (AUTO) 8.5 % (2-12); NEUTROPHILS # (AUTO) 2.2 X10'3 (1.8-7.7); NEUTROPHILS % (AUTO) 47.3 % (42-75); PLATELET COUNT 184 X10'3 (140-440); RED BLOOD COUNT 4.85 X10'6 (4.70-6.10); RED CELL DISTRIBUTION WIDTH 14.4 % (11.5-14.5); WHITE BLOOD COUNT 4.6 X10'3 (4.5-11.0)
[2023-12-28 15:55] LABS: ALANINE AMINOTRANSFERASE 33 U/L (12-78); ALBUMIN 3.7 G/DL (3.4-5.0); ALBUMIN/GLOBULIN RATIO 1.2 (1.1-1.5); ALKALINE PHOSPHATASE 88 IU/L (46-116); ANION GAP 7 (8-16); ASPARTATE AMINO TRANSFERASE 29 U/L (10-37); BILIRUBIN,TOTAL 0.4 MG/DL (0.1-1.0); BLOOD UREA NITROGEN 9 MG/DL (7-18); BUN/CREATININE RATIO 11.3 (10.0-20.0); CALCIUM 8.7 MG/DL (8.5-10.1); CHLORIDE 105 MMOL/L (99-107); GLUCOSE 135 MG/DL (70-104); POTASSIUM 3.9 MMOL/L (3.5-5.1); SODIUM 140 MMOL/L (135-145); TOTAL CARBON DIOXIDE 28.4 MMOL/L (24-32); TOTAL PROTEIN 6.9 G/DL (6.4-8.2); eCRCL 118 ML/MIN; eGFR > 90 ML/MIN
[2023-12-28 16:02] LABS: PRO BRAIN NATRIURETIC PEPTIDE < 30 PG/ML (0-125)
[2023-12-28] MEDS ORDERED: OMEP40CA21 PO (17:46)
[2023-12-28] MEDS ORDERED: heparin 10,000 units/1 ML INJ IV PRN ×2 (18:10→19:00)
[2023-12-28] MEDS ORDERED: heparin 10,000 units/1 ML INJ IV ONE ×2 (18:10→20:10)
[2023-12-28] MEDS ORDERED: heparin 25,000 UNIT/250ml bag 250 ML IV PRN ×2 (18:10→20:10)
[2023-12-28 19:28] LABS: INR 1.8 INR; PROTHROMBIN TIME 17.6 SECONDS (9.0-12.0)
[2023-12-28] MEDS: mag hydrox/Alum hydrox/simeth 30ml oral suspension PO ONE (19:30)
[2023-12-28] MEDS: morphine 4 MG/ML inj SYRINge IV ONE (19:30)
[2023-12-28] MEDS: heparin 25,000 UNIT/250ml bag 250 ML IV PRN (20:01)
[2023-12-28] MEDS: MESSAGE TO NURSING IV ONE (20:02)
[2023-12-28] MEDS: heparin 10,000 units/1 ML INJ IV ONE (20:02)
[2023-12-28] MEDS ORDERED: magnesium sulf-water 4G/100mL 100 ML IV PRN (20:15)
[2023-12-28] MEDS ORDERED: mag hydrox/Alum hydrox/simeth 30ml oral suspension PO PRN (20:15)
[2023-12-28] MEDS: normal saline 1000ml 1,000 ML IV SCH (20:15)
[2023-12-28] MEDS ORDERED: ondansetron/PF 4mg/2ml inj IV PRN (20:15)
[2023-12-28] MEDS ORDERED: morphine 2 MG/ML inj. syringe IV PRN (20:15)
[2023-12-28] MEDS ORDERED: acetaminophen 325mg tablet PO PRN (20:15)
[2023-12-28] MEDS ORDERED: potassium Cl 20 mEq SR tablet PO PRN ×2 (20:15)
[2023-12-28] MEDS ORDERED: potassium Cl 40MEQ/1/2NS 520ml 520 ML IV PRN (20:15)
[2023-12-28] MEDS ORDERED: magnesium hydroxide 30ml (MOM) UD suspension PO PRN (20:15)
[2023-12-28] MEDS ORDERED: magnesium Cl slow-release 64mg tablet PO PRN (20:15)
[2023-12-28] MEDS ORDERED: magnesium sulf-water 2g/50mL 50 ML IV PRN (20:15)
[2023-12-28 20:34] LABS: BASOPHILS # (AUTO) 0.1 X10'3 (0-0.2); BASOPHILS % (AUTO) 0.9 % (0-1); EOSINOPHILS # (AUTO) 0.1 X10'3 (0-0.9); EOSINOPHILS % (AUTO) 2.3 % (0-6); HEMATOCRIT 43.1 % (42.0-52.0); HEMOGLOBIN 14.6 g/dl (14.0-17.9); LYMPHOCYTES # (AUTO) 2.7 X10'3 (1.1-4.8); MEAN CORPUSCULAR HEMOGLOBIN 29.8 PG (27.0-31.0); MEAN CORPUSCULAR HGB CONC 33.8 g/dL (33.0-36.5); MEAN CORPUSCULAR VOLUME 88.2 FL (78-98); MEAN PLATELET VOLUME 7.8 FL (7.4-10.4); MONOCYTES # (AUTO) 0.4 X10'3 (0-0.9); MONOCYTES % (AUTO) 7.6 % (2-12); NEUTROPHILS # (AUTO) 2.1 X10'3 (1.8-7.7); NEUTROPHILS % (AUTO) 39.2 % (42-75); PLATELET COUNT 195 X10'3 (140-440); RED BLOOD COUNT 4.89 X10'6 (4.70-6.10); RED CELL DISTRIBUTION WIDTH 14.4 % (11.5-14.5); WHITE BLOOD COUNT 5.4 X10'3 (4.5-11.0)
[2023-12-28] MEDS: aspirin 325mg tablet PO ONE (20:35)
[2023-12-28 20:48] LABS: APTT 70 SECONDS (22-32)
[2023-12-28] MEDS ORDERED: WARF4TAB69 (21:11)
[2023-12-28] MEDS ORDERED: AMLO5TAB16 PO (21:11)
[2023-12-28] MEDS ORDERED: GABA300T28 (21:11)
[2023-12-29] MEDS: METHOCARBAMOL 750 MG PO SCH
[2023-12-29 02:21] LABS: BASOPHILS % (AUTO) 0.5 % (0-1); EOSINOPHILS # (AUTO) 0.1 X10'3 (0-0.9); EOSINOPHILS % (AUTO) 2.4 % (0-6); HEMATOCRIT 43.7 % (42.0-52.0); HEMOGLOBIN 14.4 g/dl (14.0-17.9); LYMPHOCYTES % (AUTO) 52.2 % (21-51); MEAN CORPUSCULAR HEMOGLOBIN 29.2 PG (27.0-31.0); MEAN CORPUSCULAR HGB CONC 33.1 g/dL (33.0-36.5); MEAN CORPUSCULAR VOLUME 88.4 FL (78-98); MEAN PLATELET VOLUME 7.3 FL (7.4-10.4); MONOCYTES # (AUTO) 0.5 X10'3 (0-0.9); MONOCYTES % (AUTO) 8.7 % (2-12); NEUTROPHILS # (AUTO) 2.1 X10'3 (1.8-7.7); NEUTROPHILS % (AUTO) 36.2 % (42-75); PLATELET COUNT 182 X10'3 (140-440); RED BLOOD COUNT 4.95 X10'6 (4.70-6.10); WHITE BLOOD COUNT 5.7 X10'3 (4.5-11.0)
[2023-12-29 02:29] LABS: ALANINE AMINOTRANSFERASE 32 U/L (12-78); ALBUMIN 3.7 G/DL (3.4-5.0); ALBUMIN/GLOBULIN RATIO 1.1 (1.1-1.5); ALKALINE PHOSPHATASE 89 IU/L (46-116); ANION GAP 6 (8-16); ASPARTATE AMINO TRANSFERASE 30 U/L (10-37); BILIRUBIN,TOTAL 0.4 MG/DL (0.1-1.0); BLOOD UREA NITROGEN 9 MG/DL (7-18); BUN/CREATININE RATIO 11.4 (10.0-20.0); CALCIUM 8.7 MG/DL (8.5-10.1); CHLORIDE 105 MMOL/L (99-107); CHOL/HDL RATIO 4.7 (0.00-4.99); CHOLESTEROL 203 MG/DL (0-200); CREATININE 0.79 MG/DL (0.60-1.10); GLUCOSE 99 MG/DL (70-104); HDL CHOLESTEROL 43 MG/DL (35-60); LDL CHOLESTEROL 116 MG/DL (50-100); MAGNESIUM 1.9 MG/DL (1.5-2.4); POTASSIUM 3.8 MMOL/L (3.5-5.1); SODIUM 140 MMOL/L (135-145); TOTAL CARBON DIOXIDE 29.1 MMOL/L (24-32); TOTAL PROTEIN 7.1 G/DL (6.4-8.2); TRIGLYCERIDES 294 MG/DL (20-135); eCRCL 119 ML/MIN; eGFR > 90 ML/MIN
[2023-12-29] MEDS: MESSAGE TO NURSING IV ONE ×3 (03:26→19:30)
[2023-12-29] MEDS: heparin 10,000 units/1 ML INJ IV PRN (03:31)
[2023-12-29] MEDS: nitroGLYCERIN 0.4mg SUBLingual tab SL PRN (05:00)
[2023-12-29] MEDS: morphine 2 MG/ML inj. syringe IV PRN ×2 (05:50→07:21)
[2023-12-29] MEDS: pantoprazole 40mg Tablet.DR PO SCH (07:30)
[2023-12-29] MEDS: aspirin 81mg, enteric-coated 1 TAB TABLET.DR PO SCH (08:00)
[2023-12-29] MEDS: K and/or MAG REPLACEMENT MC SCH (08:00)
[2023-12-29] MEDS: atorvastatin 20mg tablet PO SCH ×2 (08:00→13:55)
[2023-12-29] MEDS: docusate sod 100mg capsule PO SCH (08:00)
[2023-12-29] MEDS: metoprolol tartrate 25mg tablet PO SCH ×2 (08:00→17:57)
[2023-12-29] MEDS: lisinopril 5mg tablet PO SCH (08:00)
[2023-12-29 09:45] VITALS: BP 139/70; PULSE 63; RESP 16; TEMP 97.3; O2SAT 100
[2023-12-29 10:00] VITALS: RESP 16; O2SAT 100
[2023-12-29 11:00] VITALS: BP 111/71; PULSE 61; RESP 16; TEMP 98.4; O2SAT 98
[2023-12-29] MEDS ORDERED: nitroGLYCERIN-Tridil 50MG/D5W 250 ML IV SCH (12:30)
[2023-12-29 15:00] VITALS: BP 162/86; PULSE 62; RESP 18; TEMP 98; O2SAT 100
[2023-12-29] MEDS: amLODIPine 5mg tablet PO SCH (17:57)
[2023-12-29 20:00] VITALS: RESP 16; O2SAT 100
[2023-12-29 22:00] VITALS: BP 130/84; PULSE 61; RESP 16; TEMP 97.5; O2SAT 95
[2023-12-30] VITALS (16 sets, daily range): BP systolic 114–158; BP diastolic 63–98; PULSE 56–68; RESP 12–18; TEMP 96.6–98.7; O2SAT 95–100
[2023-12-30 02:24] LABS: EOSINOPHILS # (AUTO) 0.1 X10'3 (0-0.9); HEMOGLOBIN 14.9 g/dl (14.0-17.9); LYMPHOCYTES # (AUTO) 2.9 X10'3 (1.1-4.8); MONOCYTES # (AUTO) 0.5 X10'3 (0-0.9); MONOCYTES % (AUTO) 8.7 % (2-12); WHITE BLOOD COUNT 6.1 X10'3 (4.5-11.0)
[2023-12-30 02:26] LABS: BASOPHILS % (AUTO) 0.6 % (0-1); EOSINOPHILS % (AUTO) 1.3 % (0-6); HEMATOCRIT 44.4 % (42.0-52.0); LYMPHOCYTES % (AUTO) 47.2 % (21-51); MEAN CORPUSCULAR HEMOGLOBIN 29.9 PG (27.0-31.0); MEAN CORPUSCULAR HGB CONC 33.6 g/dL (33.0-36.5); MEAN CORPUSCULAR VOLUME 88.8 FL (78-98); MEAN PLATELET VOLUME 7.7 FL (7.4-10.4); NEUTROPHILS # (AUTO) 2.6 X10'3 (1.8-7.7); NEUTROPHILS % (AUTO) 42.2 % (42-75); RED CELL DISTRIBUTION WIDTH 14.3 % (11.5-14.5)
[2023-12-30 02:33] LABS: PLATELET COUNT 181 X10'3 (140-440)
[2023-12-30 02:39] LABS: ALANINE AMINOTRANSFERASE 41 U/L (12-78); ALBUMIN 3.7 G/DL (3.4-5.0); ALKALINE PHOSPHATASE 88 IU/L (46-116); ANION GAP 6 (8-16); ASPARTATE AMINO TRANSFERASE 94 U/L (10-37); BILIRUBIN,TOTAL 0.6 MG/DL (0.1-1.0); BLOOD UREA NITROGEN 13 MG/DL (7-18); BUN/CREATININE RATIO 16.5 (10.0-20.0); CHLORIDE 103 MMOL/L (99-107); CREATININE 0.79 MG/DL (0.60-1.10); GLUCOSE 85 MG/DL (70-104); MAGNESIUM 1.9 MG/DL (1.5-2.4); POTASSIUM 3.9 MMOL/L (3.5-5.1); SODIUM 137 MMOL/L (135-145); TOTAL CARBON DIOXIDE 27.7 MMOL/L (24-32); TOTAL PROTEIN 7.4 G/DL (6.4-8.2); eCRCL 119 ML/MIN; eGFR > 90 ML/MIN
[2023-12-30 02:42] LABS: D-DIMER < 0.19 MG/L FEU (0-0.50)
[2023-12-30] MEDS: MESSAGE TO NURSING IV ONE ×2 (02:55→09:50)
[2023-12-30] MEDS ORDERED: LIDOcaine 1% (10mg/ml) 2ml vial ONE (08:27)
[2023-12-30] MEDS ORDERED: fentaNYL/PF 50MCG/1 ML 2ML syringe ONE ×3 (08:28→10:47)
[2023-12-30] MEDS ORDERED: verapamil 2.5 mg/ml inj IV ONE (08:28)
[2023-12-30] MEDS ORDERED: heparin 1,000unit/ml 10ml vial 10 ML ONE ×2 (08:28→10:49)
[2023-12-30] MEDS ORDERED: iohexol 350MG/ML 100ml bottle IV ONE ×2 (08:28→10:46)
[2023-12-30] MEDS ORDERED: midazolam 1 mg/ML 2ml injection ONE ×3 (08:28→10:47)
[2023-12-30] MEDS ORDERED: nitroGLYCERIN 500mcg/5mL D5W 5 ML IV ONE (08:28)
[2023-12-30] MEDS ORDERED: LIDOcaine 1% 30ml preserv. free vial ONE (10:19)
[2023-12-30] MEDS ORDERED: ticagrelor 90mg tablet ONE (11:07)
[2023-12-30] MEDS ORDERED: nitroGLYCERIN 0.4mg SUBLingual tab SL PRN (12:15)
[2023-12-30] MEDS ORDERED: HYDROcodone/acetaminophen 10/325mg tab PO PRN (12:15)
[2023-12-30] MEDS ORDERED: OXAZEpam 15mg capsule PO PRN (12:15)
[2023-12-30] MEDS ORDERED: HYDROcodone/acetaminophen 5mg/325mg tablet PO PRN (12:15)
[2023-12-30] MEDS: acetaminophen 325mg tablet PO PRN (16:25)
[2023-12-30] MEDS: ticagrelor 90mg tablet PO SCH (19:59)
[2023-12-31 02:00] VITALS: BP 136/85; PULSE 97; RESP 19; TEMP 97.3; O2SAT 100
[2023-12-31 06:00] VITALS: BP 131/84; PULSE 77; RESP 21; TEMP 97.8; O2SAT 98
[2023-12-31 06:46] LABS: BASOPHILS % (AUTO) 0.3 % (0-1); EOSINOPHILS # (AUTO) 0.1 X10'3 (0-0.9); EOSINOPHILS % (AUTO) 1.2 % (0-6); HEMATOCRIT 44.8 % (42.0-52.0); HEMOGLOBIN 15.5 g/dl (14.0-17.9); LYMPHOCYTES # (AUTO) 2.4 X10'3 (1.1-4.8); LYMPHOCYTES % (AUTO) 38.1 % (21-51); MEAN CORPUSCULAR HEMOGLOBIN 30.4 PG (27.0-31.0); MEAN CORPUSCULAR HGB CONC 34.6 g/dL (33.0-36.5); MEAN CORPUSCULAR VOLUME 87.8 FL (78-98); MEAN PLATELET VOLUME 7.6 FL (7.4-10.4); MONOCYTES # (AUTO) 0.6 X10'3 (0-0.9); MONOCYTES % (AUTO) 9.3 % (2-12); NEUTROPHILS # (AUTO) 3.2 X10'3 (1.8-7.7); NEUTROPHILS % (AUTO) 51.1 % (42-75); PLATELET COUNT 198 X10'3 (140-440); RED CELL DISTRIBUTION WIDTH 14.2 % (11.5-14.5); WHITE BLOOD COUNT 6.4 X10'3 (4.5-11.0)
[2023-12-31 06:59] LABS: ALANINE AMINOTRANSFERASE 32 U/L (12-78); ALBUMIN 3.9 G/DL (3.4-5.0); ALBUMIN/GLOBULIN RATIO 1.1 (1.1-1.5); ALKALINE PHOSPHATASE 89 IU/L (46-116); ANION GAP 10 (8-16); ASPARTATE AMINO TRANSFERASE 62 U/L (10-37); BLOOD UREA NITROGEN 12 MG/DL (7-18); BUN/CREATININE RATIO 14.5 (10.0-20.0); CALCIUM 9.1 MG/DL (8.5-10.1); CHLORIDE 102 MMOL/L (99-107); CREATININE 0.83 MG/DL (0.60-1.10); GLUCOSE 94 MG/DL (70-104); MAGNESIUM 1.8 MG/DL (1.5-2.4); POTASSIUM 3.8 MMOL/L (3.5-5.1); SODIUM 137 MMOL/L (135-145); TOTAL CARBON DIOXIDE 25.5 MMOL/L (24-32); TOTAL PROTEIN 7.6 G/DL (6.4-8.2); eCRCL 114 ML/MIN; eGFR > 90 ML/MIN
[2023-12-31 10:00] VITALS: BP 109/61; PULSE 85; RESP 18; TEMP 97; O2SAT 99
[2023-12-31] MEDS ORDERED: TICA90TA PO (10:43)
[2023-12-31] MEDS ORDERED: TICA90TA2 PO (11:54)
[2023-12-31 12:30] VITALS: RESP 18; O2SAT 99
[2023-12-31 14:00] VITALS: BP 128/77; PULSE 68; RESP 18; TEMP 99.3; O2SAT 99
[2023-12-31] MEDS ORDERED: ticagrelor 90mg tablet PO ONE (16:00)
[2023-12-31] MEDS: ticagrelor 90mg tablet PO SCH (18:16)
[2023-12-31] MEDS: aspirin 81mg, enteric-coated 1 TAB TABLET.DR PO ONE (18:16)
== END 2023-12-31 20:50 | disposition home or self-care (01) | DRG 322 ==
LOC: ER 15:01 → ED HOLD 19:18 → PCU 3S 12-29 09:47
PROVIDERS: ADMIT Internal Medicine Critical Care Medicine; ATTEND Family Medicine
PROC: 027135Z Dilation of Coronary Artery, Two Arteries with Two Drug-eluting Intraluminal Devices, Percutaneous Approach (ICD-10-PCS; principal; 2023-12-30)
PROC: 4A023N7 Measurement of Cardiac Sampling and Pressure, Left Heart, Percutaneous Approach (ICD-10-PCS; 2023-12-30)
PROC: B2111ZZ Fluoroscopy of Multiple Coronary Arteries using Low Osmolar Contrast (ICD-10-PCS; 2023-12-30)
PROC: B2151ZZ Fluoroscopy of Left Heart using Low Osmolar Contrast (ICD-10-PCS; 2023-12-30)
DX: I21.4 Non-ST elevation (NSTEMI) myocardial infarction (principal); E78.00 Pure hypercholesterolemia, unspecified; K21.9 Gastro-esophageal reflux disease without esophagitis; I10 Essential (primary) hypertension; M54.17 Radiculopathy, lumbosacral region; I25.10 Atherosclerotic heart disease of native coronary artery without angina pectoris; M48.07 Spinal stenosis, lumbosacral region; E66.811 Obesity, class 1; E78.5 Hyperlipidemia, unspecified; Z68.34 Body mass index [BMI] 34.0-34.9, adult; I25.2 Old myocardial infarction; Z79.899 Other long term (current) drug therapy; Z86.711 Personal history of pulmonary embolism; Z79.01 Long term (current) use of anticoagulants; Z79.82 Long term (current) use of aspirin; Z87.891 Personal history of nicotine dependence; Z98.61 Coronary angioplasty status
CPT/HCPCS: 36415; 71045; 76937; 80053; 80061; 83036; 83735; 83880; 84484; 85025; 85379; 85610; 85730; 87081; 93005; 93306; 93458; 99152; 99153; 99285; A4615; A4620; A6258; A6449; C1725; C1751; C1769; C1874; C1894; C9600; G0378; J1644; J2250; J2270; J3010; J3490; J7030; Q9967

== ENCOUNTER 2024-05-25 19:20 | Observation (INO) | payer BC ==
[~2024-05-25] VITALS: Ht 185.4 cm; Wt 124.4 kg
[~2024-05-25 19:20] MED LIST changes: +AMLO5TAB16 PO; +GABA300T28; +TICA90TA2 PO; +WARF4TAB69
[2024-05-25 20:17] LABS: BASOPHILS % (AUTO) 0.7 % (0-1); EOSINOPHILS # (AUTO) 0.1 X10'3 (0-0.9); EOSINOPHILS % (AUTO) 2.4 % (0-6); HEMATOCRIT 43.8 % (42.0-52.0); HEMOGLOBIN 14.8 g/dl (14.0-17.9); LYMPHOCYTES # (AUTO) 2.1 X10'3 (1.1-4.8); LYMPHOCYTES % (AUTO) 43.1 % (21-51); MEAN CORPUSCULAR HGB CONC 33.8 g/dL (33.0-36.5); MEAN CORPUSCULAR VOLUME 85.8 FL (78-98); MEAN PLATELET VOLUME 7.6 FL (7.4-10.4); MONOCYTES # (AUTO) 0.5 X10'3 (0-0.9); MONOCYTES % (AUTO) 11.1 % (2-12); NEUTROPHILS % (AUTO) 42.7 % (42-75); PLATELET COUNT 196 X10'3 (140-440); RED CELL DISTRIBUTION WIDTH 14.1 % (11.5-14.5); WHITE BLOOD COUNT 4.8 X10'3 (4.5-11.0)
[2024-05-25 20:35] LABS: ALANINE AMINOTRANSFERASE 35 U/L (12-78); ALBUMIN/GLOBULIN RATIO 1.1 (1.1-1.5); ALKALINE PHOSPHATASE 109 IU/L (46-116); ANION GAP 5 (8-16); ASPARTATE AMINO TRANSFERASE 27 U/L (10-37); BILIRUBIN,TOTAL 0.4 MG/DL (0.1-1.0); BLOOD UREA NITROGEN 10 MG/DL (7-18); BUN/CREATININE RATIO 13.3 (10.0-20.0); CALCIUM 8.8 MG/DL (8.5-10.1); CHLORIDE 104 MMOL/L (99-107); CREATININE 0.75 MG/DL (0.60-1.10); GLUCOSE 122 MG/DL (70-104); POTASSIUM 3.9 MMOL/L (3.5-5.1); SODIUM 139 MMOL/L (135-145); TOTAL PROTEIN 7.7 G/DL (6.4-8.2); eCRCL 126 ML/MIN; eGFR > 90 ML/MIN
[2024-05-25 20:42] LABS: PRO BRAIN NATRIURETIC PEPTIDE 33 PG/ML (0-125)
[2024-05-25] MEDS ORDERED: WARF3TAB56 PO (23:06)
[2024-05-25] MEDS ORDERED: WARF6TAB49 PO (23:06)
[2024-05-25] MEDS ORDERED: CLOP-32 PO (23:06)
[2024-05-25] MEDS ORDERED: potassium Cl 40MEQ/1/2NS 520ml 520 ML IV PRN (23:40)
[2024-05-25] MEDS ORDERED: magnesium sulf-water 2g/50mL 50 ML IV PRN (23:40)
[2024-05-25] MEDS: normal saline 1000ml 1,000 ML IV SCH (23:40)
[2024-05-25] MEDS ORDERED: ondansetron/PF 4mg/2ml inj IV PRN (23:40)
[2024-05-25] MEDS ORDERED: potassium Cl 20 mEq SR tablet PO PRN ×2 (23:40)
[2024-05-25] MEDS ORDERED: magnesium sulf-water 4G/100mL 100 ML IV PRN (23:40)
[2024-05-25] MEDS ORDERED: magnesium hydroxide 30ml (MOM) UD suspension PO PRN (23:40)
[2024-05-25] MEDS ORDERED: mag hydrox/Alum hydrox/simeth 30ml oral suspension PO PRN (23:40)
[2024-05-25] MEDS ORDERED: magnesium Cl slow-release 64mg tablet PO PRN (23:40)
[2024-05-25] MEDS ORDERED: acetaminophen 325mg tablet PO PRN (23:40)
[2024-05-26] VITALS (10 sets, daily range): BP systolic 93–157; BP diastolic 64–86; PULSE 58–84; RESP 14–20; TEMP 97.2–98.5; O2SAT 96–100
[2024-05-26 01:17] LABS: BASOPHILS # (AUTO) 0.1 X10'3 (0-0.2); BASOPHILS % (AUTO) 1.3 % (0-1); EOSINOPHILS # (AUTO) 0.1 X10'3 (0-0.9); EOSINOPHILS % (AUTO) 1.7 % (0-6); HEMATOCRIT 43.4 % (42.0-52.0); HEMOGLOBIN 14.7 g/dl (14.0-17.9); LYMPHOCYTES # (AUTO) 2.7 X10'3 (1.1-4.8); LYMPHOCYTES % (AUTO) 52.2 % (21-51); MEAN CORPUSCULAR HEMOGLOBIN 28.7 PG (27.0-31.0); MEAN CORPUSCULAR HGB CONC 33.9 g/dL (33.0-36.5); MEAN CORPUSCULAR VOLUME 84.7 FL (78-98); MEAN PLATELET VOLUME 7.6 FL (7.4-10.4); MONOCYTES # (AUTO) 0.4 X10'3 (0-0.9); MONOCYTES % (AUTO) 8.5 % (2-12); NEUTROPHILS # (AUTO) 1.9 X10'3 (1.8-7.7); NEUTROPHILS % (AUTO) 36.3 % (42-75); PLATELET COUNT 181 X10'3 (140-440); RED BLOOD COUNT 5.13 X10'6 (4.70-6.10); RED CELL DISTRIBUTION WIDTH 14.4 % (11.5-14.5); WHITE BLOOD COUNT 5.1 X10'3 (4.5-11.0)
[2024-05-26 01:35] LABS: ALANINE AMINOTRANSFERASE 28 U/L (12-78); ALBUMIN/GLOBULIN RATIO 1.1 (1.1-1.5); ALKALINE PHOSPHATASE 101 IU/L (46-116); ANION GAP 9 (8-16); ASPARTATE AMINO TRANSFERASE 30 U/L (10-37); BILIRUBIN,TOTAL 0.4 MG/DL (0.1-1.0); BLOOD UREA NITROGEN 10 MG/DL (7-18); CALCIUM 9.1 MG/DL (8.5-10.1); CHLORIDE 104 MMOL/L (99-107); CREATININE 0.77 MG/DL (0.60-1.10); GLUCOSE 79 MG/DL (70-104); POTASSIUM 4.1 MMOL/L (3.5-5.1); SODIUM 141 MMOL/L (135-145); TOTAL CARBON DIOXIDE 27.7 MMOL/L (24-32); TOTAL PROTEIN 7.8 G/DL (6.4-8.2); eCRCL 123 ML/MIN; eGFR > 90 ML/MIN
[2024-05-26 01:38] LABS: CHOL/HDL RATIO 5.1 (0.00-4.99); CHOLESTEROL 205 MG/DL (0-200); HDL CHOLESTEROL 40 MG/DL (35-60); LDL CHOLESTEROL 132 MG/DL (50-100); MAGNESIUM 1.8 MG/DL (1.5-2.4); TRIGLYCERIDES 158 MG/DL (20-135)
[2024-05-26] MEDS ORDERED: NITR0.4T48 (01:51)
[2024-05-26] MEDS ORDERED: ATOR40TA72 (01:51)
[2024-05-26] MEDS ORDERED: ACET-2778 (01:51)
[2024-05-26] MEDS ORDERED: CLOP75TA34 PO (01:51)
[2024-05-26] MEDS ORDERED: METO50TA16 (01:51)
[2024-05-26] MEDS ORDERED: OMEP40CA21 PO (01:51)
[2024-05-26] MEDS ORDERED: nitroGLYCERIN 0.4mg SUBLingual tab SL PRN ×3 (03:20→17:10)
[2024-05-26] MEDS ORDERED: aminophylline 250mg/10ml inj. IV PRN (03:20)
[2024-05-26] MEDS ORDERED: metoprolol tartrate 1mg/ml inj IV PRN (03:20)
[2024-05-26 08:33] LABS: APTT 35 SECONDS (22-32); INR 2.7 INR
[2024-05-26] MEDS ORDERED: aminophylline 500mg/20ml vial IV PRN (08:46)
[2024-05-26] MEDS: regadenoson 0.4mg/5ml syringe IV PRN (09:08)
[2024-05-26] MEDS: K and/or MAG REPLACEMENT MC SCH (11:00)
[2024-05-26] MEDS: atorvastatin 20mg tablet PO SCH (11:24)
[2024-05-26] MEDS: aspirin 81mg tab.chew PO SCH (11:25)
[2024-05-26] MEDS: metoprolol succinate 25mg (24-HOUR) SR. Tablet PO SCH (11:25)
[2024-05-26] MEDS: pantoprazole 40mg Tablet.DR PO SCH (11:25)
[2024-05-26] MEDS: docusate sod 100mg capsule PO SCH (11:26)
[2024-05-26] MEDS ORDERED: LIDOcaine 1% 30ml preserv. free vial ONE (14:14)
[2024-05-26] MEDS ORDERED: midazolam 1 mg/ML 2ml injection ONE (14:14)
[2024-05-26] MEDS ORDERED: verapamil 2.5 mg/ml inj IV ONE (14:14)
[2024-05-26] MEDS ORDERED: heparin 1,000unit/ml 10ml vial 0 ML ONE (14:15)
[2024-05-26] MEDS ORDERED: iohexol 350MG/ML 100ml bottle IV ONE (14:15)
[2024-05-26] MEDS ORDERED: heparin 1,000 UNITS/NS 500ml 0 ML ONE (14:15)
[2024-05-26] MEDS ORDERED: fentaNYL/PF 50MCG/1 ML 2ML syringe ONE (14:15)
[2024-05-26] MEDS: metoprolol tartrate 25mg tablet PO SCH (19:33)
[2024-05-26] MEDS ORDERED: warfarin 5mg tablet PO ONE (21:00)
[2024-05-26] MEDS ORDERED: warfarin 4mg tablet PO ONE (21:00)
[2024-05-27 06:00] VITALS: BP_SYST 112; BP_SYST 119; BP_DIAS 55; BP_DIAS 64; PULSE 53; PULSE 62; RESP 16; RESP 18; TEMP 97.8; TEMP 98.2; O2SAT 94; O2SAT 97
[2024-05-27 07:45] LABS: EOSINOPHILS # (AUTO) 0.1 X10'3 (0-0.9); HEMOGLOBIN 14.7 g/dl (14.0-17.9); MEAN CORPUSCULAR VOLUME 85.9 FL (78-98); MEAN PLATELET VOLUME 7.8 FL (7.4-10.4); MONOCYTES # (AUTO) 0.3 X10'3 (0-0.9); NEUTROPHILS # (AUTO) 1.8 X10'3 (1.8-7.7); RED CELL DISTRIBUTION WIDTH 14.4 % (11.5-14.5)
[2024-05-27 07:47] LABS: BASOPHILS % (AUTO) 0.4 % (0-1); EOSINOPHILS % (AUTO) 2.8 % (0-6); HEMATOCRIT 44.6 % (42.0-52.0); LYMPHOCYTES # (AUTO) 2.2 X10'3 (1.1-4.8); LYMPHOCYTES % (AUTO) 49.3 % (21-51); MEAN CORPUSCULAR HEMOGLOBIN 28.4 PG (27.0-31.0); MONOCYTES % (AUTO) 7.7 % (2-12); NEUTROPHILS % (AUTO) 39.8 % (42-75); PLATELET COUNT 205 X10'3 (140-440); RED BLOOD COUNT 5.19 X10'6 (4.70-6.10); WHITE BLOOD COUNT 4.5 X10'3 (4.5-11.0)
[2024-05-27 07:55] VITALS: RESP 18; O2SAT 97
[2024-05-27 07:55] LABS: INR 2.4 INR
[2024-05-27] MEDS: amLODIPine 5mg tablet PO SCH (07:59)
[2024-05-27] MEDS ORDERED: atorvastatin 20mg tablet PO SCH (08:00)
[2024-05-27] MEDS ORDERED: non-formulary drug (Omeprazole (Prilosec) 1 CAP) PO SCH (08:00)
[2024-05-27 08:10] LABS: ALANINE AMINOTRANSFERASE 28 U/L (12-78); ALBUMIN 3.7 G/DL (3.4-5.0); ALKALINE PHOSPHATASE 93 IU/L (46-116); ANION GAP 9 (8-16); ASPARTATE AMINO TRANSFERASE 24 U/L (10-37); BILIRUBIN,TOTAL 0.5 MG/DL (0.1-1.0); BLOOD UREA NITROGEN 14 MG/DL (7-18); BUN/CREATININE RATIO 16.7 (10.0-20.0); CHLORIDE 105 MMOL/L (99-107); CREATININE 0.84 MG/DL (0.60-1.10); GLUCOSE 81 MG/DL (70-104); MAGNESIUM 1.8 MG/DL (1.5-2.4); POTASSIUM 4.1 MMOL/L (3.5-5.1); SODIUM 141 MMOL/L (135-145); TOTAL CARBON DIOXIDE 27.5 MMOL/L (24-32); TOTAL PROTEIN 7.4 G/DL (6.4-8.2); eCRCL 112 ML/MIN; eGFR > 90 ML/MIN
[2024-05-27 10:00] VITALS: BP 150/82; PULSE 67; RESP 22; TEMP 98.1; O2SAT 98
[2024-05-27] MEDS ORDERED: warfarin 4mg tablet PO ONE (21:00)
[2024-05-27] MEDS ORDERED: warfarin 5mg tablet PO ONE (21:00)
== END 2024-05-27 16:13 | disposition home or self-care (01) ==
LOC: ER 19:20 → INTOOBSV 23:40 → ED HOLD 23:40 → ORTHO 4S 05-26 07:55
PROVIDERS: ADMIT Internal Medicine; ATTEND Internal Medicine
DX: R07.89 Other chest pain (principal); I25.10 Atherosclerotic heart disease of native coronary artery without angina pectoris; I10 Essential (primary) hypertension; E78.00 Pure hypercholesterolemia, unspecified; I25.2 Old myocardial infarction; G89.29 Other chronic pain; M54.9 Dorsalgia, unspecified; R60.1 Generalized edema; Z79.899 Other long term (current) drug therapy; Z86.711 Personal history of pulmonary embolism
CPT/HCPCS: 36415; 71045; 78452; 80053; 80061; 82948; 83036; 83735; 83880; 84484; 85025; 85610; 85730; 87081; 93005; 93017; 93306; 96360; 96361; 99285; A9500; G0378; J2785; J7030; J1644; J2003; J2250; J3010; J3490; Q9967

== ENCOUNTER 2024-07-27 09:28 | Emergency (ER) | payer BC ==
[~2024-07-27] VITALS: Ht 185.4 cm; Wt 122.6 kg
[~2024-07-27 09:28] MED LIST changes: +ACET-2778; +ATOR40TA72; +CLOP-32 PO; +CLOP75TA34 PO; -GABA300T28; -LISI5TAB22 PO; -METH-798 PO; +METO50TA16; +NITR0.4T48; +OMEP40CA21 PO; -TICA90TA2 PO; -WARF1TAB83 PO; +WARF3TAB56 PO; -WARF4TAB69; +WARF6TAB49 PO
[2024-07-27 09:45] VITALS: BP 111/94; PULSE 71; TEMP 99
--- NOTE | 2024-07-27 09:53 | Physician Documentation ---
History of Present Illness ~ Chief Complaint: Back Pain Stated Complaint: BACK PAIN Time Seen by MD: 09:32 Primary Medical Doctor: Moira Zurita. [facility]. Electrophysiology Scientist Dr. Zuñiga. [facility]. HPI This 53-year-old male presents to the ED with a complaint of left lumbar pain which has increased in severity over the last 2-3 days states he has had a chronic issues with his back denies any acute injury however. He was it denies any numbness tingling incontinence or any other red flag symptoms. Does report having pain that radiates down his left buttocks Day of Onset: July 27, 2024 Medication Reconciliation Allergies: Coded Allergies: No Known Allergies (Unverified , 05/25/24) Scheduled Amlodipine Besylate (Amlodipine Besylate), 1 TAB PO DAILY, (Reported) Aspirin (Aspirin), 1 TAB.CHEW PO DAILY, (Reported) Atorvastatin Calcium* (Lipitor*), 1 TAB PO DAILY, (Reported) Clopidogrel Bisulfate (Plavix), 1 TAB PO DAILY, (Reported) Clopidogrel Bisulfate (Clopidogrel), 1 TAB PO DAILY, (Reported) Metoprolol Tartrate (Metoprolol Tartrate), 1 TAB PO Q12H, (Reported) Metoprolol Tartrate (Metoprolol Tartrate), 1 DAILY, (Reported) Omeprazole (Prilosec), 1 CAP PO DAILY, (Reported) Warfarin Sodium (Warfarin Sodium), 1 TAB PO DAILY, (Reported) Warfarin Sodium (Warfarin Sodium), 1 TAB PO DAILY, (Reported) Scheduled PRN Nitroglycerin SL* (Nitrostat SL*), 1 TAB SL Q5MIN PRN for Chest pain Q5min PRNx3-call MD, (Reported) Miscellaneous Medications Acetaminophen (Acetaminophen ER), (Reported) Atorvastatin Calcium (Atorvastatin Calcium), (Reported) Nitroglycerin (Nitroglycerin), (Reported) Past Medical History Past Medical History: Coronary Artery Disease, High Cholesterol, Hypertension, Myocardial Infarction, Pulmonary Embolism, Chronic Back Pain Past Surgical History: angioplasty, other Patient History: Patient reports no known family medical history. Alcohol Use: None Drug Use: marijuana Lives with: Family Lives In: Home Occupation: employed Review of Systems All Other Systems at this time: Reviewed and Negative ROS As stated above in the HPI, otherwise all systems are reviewed and negative. Physical Exam Physical Exam Vital Signs: Temperature: 99.0, Source: Oral, Heart Rate: 71, Respiratory Rate: 18, BP: 111/94, Weight: 122.600 Physical Exam Back: Tenderness to palpation left lumbar region Extremities: Normal range of motion, no deformity. Neurologic: Oriented x4. Psychiatric: Normal mood and affect. Skin: Normal color, warm and dry. No edema, no ecchymosis. Progress Results/Orders Results/Orders Completed Orders - CHENG PERDOMO NP Ketorolac Trometh 30mg/Ml Vial (Toradol (07/27/24 09:55) Vital Signs 07/27/24 07/27/24 09:45 09:58 Temp 99.0 Pulse 71 Resp 18 18 B/P (MAP) 111/94 Departure Disposition: 01 HOME / SELF CARE / HOMELESS Impression: Primary Impression: Chronic back pain Additional Impression: Back problem Condition: Stable Discharge Instructions: Chronic Back Pain, Back Exercises Referrals: NO PRIMARY CARE PROVIDER (PCP) Signature Scribe Signature: t Attestation: The note accurately reflects work and decisions made by me.Cheng Lew NP 07/27/24 18:25 CHENG PERDOMO NP July 27, 2024 09:53
[2024-07-27 09:58] VITALS: RESP 18
[2024-07-27] MEDS: ketorolac trometh 30MG/ML vial 30 MG/ML VIAL IM ONE (09:58)
== END 2024-07-27 10:06 | disposition home or self-care (01) ==
LOC: ER 09:28
DX: G89.29 Other chronic pain (principal); M54.9 Dorsalgia, unspecified; I10 Essential (primary) hypertension; E78.00 Pure hypercholesterolemia, unspecified; I25.10 Atherosclerotic heart disease of native coronary artery without angina pectoris; I25.2 Old myocardial infarction; F12.90 Cannabis use, unspecified, uncomplicated; Z86.711 Personal history of pulmonary embolism; Z79.82 Long term (current) use of aspirin; Z79.899 Other long term (current) drug therapy
CPT/HCPCS: 96372; 99283; J1885